=== PATIENT | female | born 2000 | race Two or more races ===

== ENCOUNTER → 2024-05-07 | Outpatient (CLI) | payer MEDICAID, SELFPAY ==
[2024-05-06 18:01] LABS: HCG Qualitative,Urine Negative
--- NOTE | 2024-05-07 10:30 | XR_ITS ---
Examination: CT soft tissue neck, with intravenous contrast. 2-D coronal reconstructions. 2-D sagittal reconstructions. Date and time of exam :May 07, 2024 1137 hours INDICATIONS: Left-sided neck pain palpable lymph nodes in the neck one year. CTDI: vol (mGy):9.27 DLP: (mGycm):276 Technique: 1.25 mm axial sections of the neck of the obtained. Coronal and sagittal reconstructions have been obtained. Intravenous contrast administered 60 cc Isovue-[id number]. Low dose protocols were performed. One or more of the following dose reduction techniques were used; automated exposure control, adjustment of the mA and/or KV according to patient size, use of iterative reconstruction technique. Findings: Opacification left maxillary antrum Symmetrical nasopharynx oropharynx Bilateral carotid triangle lymph nodes, the largest on the left side 10 mm 6 mm left submental lymph node The larynx appears normal 4 mm left thyroid nodule Normal epiglottis No prevertebral soft tissue prominence IMPRESSION: Carotid triangle and submental lymphadenopathy as above Recommend ultrasound soft tissue neck at the area concern
== END | disposition home or self-care (01) ==
PROVIDERS: PCP Physician Assistant; Referring Provider Physician Assistant; Visit Provider Physician Assistant
DX: R59.0 Localized enlarged lymph nodes (principal); Z32.00 Encounter for pregnancy test, result unknown
CPT/HCPCS: 70491; 81025; A4649; Q9967